=== PATIENT | male | born 1975 | race Caucasian/White ===

== ENCOUNTER 2017-07-15 13:38 | Emergency (ER) | payer MEDICARE, OTHER ==
[~2017-07-15] VITALS: Ht 172.7 cm; Wt 80.0 kg
[2017-07-15 14:02] VITALS: BP 128/66; PULSE 123; RESP 18; TEMP 99.8; O2SAT 97
[2017-07-15] MEDS ORDERED: BUPR150XL PO (14:13)
[2017-07-15] MEDS ORDERED: PERC5TAB12 PO (14:13)
[2017-07-15] MEDS ORDERED: VENTAER INH (14:14)
[2017-07-15] MEDS ORDERED: PROT40TA PO (14:14)
[2017-07-15 14:38] LABS: AUTOMATED NEUTROPHIL # 10.2 TH/MM3 (1.8-7.7); BASOPHIL # 0.1 TH/MM3 (0-0.2); BASOPHIL % 0.5 % (0.0-2.0); EOSINOPHIL # 0.2 TH/MM3 (0-0.4); EOSINOPHIL % 1.3 % (0.0-4.0); HEMATOCRIT 31.6 % (39.0-51.0); HEMOGLOBIN 10.8 GM/DL (13.0-17.0); LYMPH % 9.4 % (9.0-44.0); LYMPHOCYTE # 1.1 TH/MM3 (1.0-4.8); MEAN CELL VOLUME 92.5 FL (80.0-100.0); MEAN CORPUSCULAR HEMOGLOBIN 31.6 PG (27.0-34.0); MEAN CORPUSCULAR HGB CONC 34.1 % (32.0-36.0); MEAN PLATELET VOLUME 6.2 FL (7.0-11.0); MONO % 3.1 % (0.0-8.0); MONOCYTE # 0.4 TH/MM3 (0-0.9); NEUT % 85.7 % (16.0-70.0); PLATELET COUNT 377 TH/MM3 (150-450); RED BLOOD COUNT 3.42 MIL/MM3 (4.50-5.90); RED CELL DISTRIBUTION WIDTH 16.4 % (11.6-17.2); WHITE BLOOD COUNT 11.8 TH/MM3 (4.0-11.0)
[2017-07-15 14:58] LABS: ALBUMIN 2.9 GM/DL (3.4-5.0); ALT (GPT) 90 U/L (12-78); AST (GOT) 65 U/L (15-37); BICARBONATE 31.1 MEQ/L (21.0-32.0); BLOOD UREA NITROGEN 12 MG/DL (7-18); CALCIUM 7.8 MG/DL (8.5-10.1); CHLORIDE 105 MEQ/L (98-107); CREATININE 1.09 MG/DL (0.60-1.30); GLOMERULAR FILTRATION RATE 74 ML/MIN (>89); GLUCOSE,RANDOM 84 MG/DL (74-106); SODIUM (NA) 139 MEQ/L (136-145)
[2017-07-15 14:59] LABS: ACETAMINOPHEN LESS THAN 2.0 MCG/ML (10.0-30.0); ALKALINE PHOSPHATASE 57 U/L (45-117); TOTAL BILIRUBIN ADULT 0.1 MG/DL (0.2-1.0); TOTAL PROTEIN 7.6 GM/DL (6.4-8.2)
--- NOTE | 2017-07-15 15:10 | PD ---
HPI Chief Complaint: Psychiatric Symptoms Time Seen by Provider: 14:02 Travel History International Travel<30 days: No Contact w/Intl Traveler<30days: No Traveled to known affect area: No History of Present Illness HPI 41-year-old male presents to the emergency department under Carrizales act. According to law enforcement report the patient is "abusing prescribed medication. Advised he wanted to kill himself last night and took all of his medication. [facility] him due to him making suicidal statements. Approximately 2 weeks ago. Mann made another statement this morning about killing himself. Mann is clinically diagnosed as psychotic disorder. Mann has slurred speech and found it difficult to stand on his own." On examination of the patient he admits to taking his Lortab that are prescribed to him. He did not take them in an attempt to kill himself. He says he has been taking 3-4 pills at a time for his chronic back pain and history of colitis. He denies suicidal or homicidal ideations. Denies history of suicidal attempt. Denies denies suicidal plan. Denies auditory or visual hallucinations. Denies EtOH. Denies illicit drug use. No known aggravating or relieving factors. Onset unknown. Duration unknown. Symptoms are moderate to severe in severity. Has no emergent medical complaints. Allergies to aspirin. Primary care provider is in [place]. No other modifying factors or associated signs and symptoms. PFSH Past Medical History Asthma: Yes Medical other: Yes (COLITIIS ) Past Surgical History Other Surgery: Yes (COLON, ILLOSTOMY BAG ) Social History Alcohol Use: No Tobacco Use: No Substance Use: No (DENIES AND DRUG USE BUT ABUSES HIS LORTAB ) Allergies-Medications (Allergen,Severity, Reaction): Coded Allergies: aspirin (Verified Allergy, Severe, Bleeding, 07/15/17) Reported Meds & Prescriptions Reported Meds & Active Scripts Active Reported Ventolin Hfa 18 GM Inh (Albuterol Sulfate) 90 Mcg/Act Aer 1 Puff INH Q4H PRN Protonix (Pantoprazole Sodium) 40 Mg Tab 40 Mg PO DAILY Percocet (Oxycodone-Acetaminophen) 5-325 mg Tab 1 Tab PO Q4H PRN Wellbutrin Xl 24 HR (Bupropion HCl) 150 Mg Tab 150 Mg PO DAILY Review of Systems Except as stated in HPI: all other systems reviewed are Neg Physical Exam Narrative GENERAL: Well-nourished, well-developed male patient, in no acute distress; appears intoxicated SKIN: Warm and dry. HEAD: Atraumatic. Normocephalic. EYES: Pupils equal and round. ENT: Mucosa pink and moist. NECK: Supple. Trachea midline. CARDIOVASCULAR: Regular rate and rhythm. No murmur appreciated. RESPIRATORY: No accessory muscle use. Clear to auscultation. Breath sounds equal bilaterally. GASTROINTESTINAL: Colostomy to LLQ draining brown stool; midline abdominal scar noted. Abdomen soft, non-tender, nondistended. Hepatic and splenic margins not palpable. Bowel sounds are active 4 quadrants. MUSCULOSKELETAL: No obvious deformities. No clubbing. No cyanosis. No edema. NEUROLOGICAL: Awake and alert. Oriented 3. No obvious cranial nerve deficits. Motor grossly within normal limits. Slurred speech. Moves all extremities. 5/5 strength to all extremities. PSYCHIATRIC: No delusional thought processes. No hallucinations. Data Data Last Documented VS Vital Signs Date Time Temp Pulse Resp B/P (MAP) Pulse Ox O2 Delivery O2 Flow Rate FiO2 07/15/17 14:06 118 18 07/15/17 14:02 99.8 128/66 (86) 97 Orders Orders Complete Blood Count With Diff (07/15/17 14:02) Comprehensive Metabolic Panel (07/15/17 14:02) Psych Screen (07/15/17 14:02) Drug Screen, Random Urine (07/15/17 14:02) Alcohol (Ethanol) (07/15/17 14:02) Salicylates (Aspirin) (07/15/17 14:02) Tylenol (Acetaminophen) (07/15/17 14:02) Labs Laboratory Tests Test 07/15/17 14:20 07/15/17 14:39 White Blood Count 11.8 TH/MM3 Red Blood Count 3.42 MIL/MM3 Hemoglobin 10.8 GM/DL Hematocrit 31.6 % Mean Corpuscular Volume 92.5 FL Mean Corpuscular Hemoglobin 31.6 PG Mean Corpuscular Hemoglobin Concent 34.1 % Red Cell Distribution Width 16.4 % Platelet Count 377 TH/MM3 Mean Platelet Volume 6.2 FL Neutrophils (%) (Auto) 85.7 % Lymphocytes (%) (Auto) 9.4 % Monocytes (%) (Auto) 3.1 % Eosinophils (%) (Auto) 1.3 % Basophils (%) (Auto) 0.5 % Neutrophils # (Auto) 10.2 TH/MM3 Lymphocytes # (Auto) 1.1 TH/MM3 Monocytes # (Auto) 0.4 TH/MM3 Eosinophils # (Auto) 0.2 TH/MM3 Basophils # (Auto) 0.1 TH/MM3 CBC Comment DIFF FINAL Differential Comment Salicylates Level LESS THAN 1.7 MG/DL MDM Medical Decision Making Medical Screen Exam Complete: Yes Emergency Medical Condition: Yes Medical Record Reviewed: Yes Differential Diagnosis Drug intoxication, suicidal ideation, medical clearance for psychiatric admission Narrative Course Patient presents under a Carrizales act. Physical examination and vital signs are essentially unremarkable. Patient has no medical complaints to report. Psych screen has been ordered. If the laboratory results are unremarkable, the patient will be medically cleared for psychiatric evaluation and disposition. Diagnosis Primary Impression: Medical clearance for psychiatric admission Condition: Stable Katy Anderson Jul 15, 2017 15:10
[2017-07-15 20:00] VITALS: BP 111/64; PULSE 102; RESP 16; O2SAT 98
[2017-07-16 03:00] VITALS: BP 125/62; PULSE 100; RESP 16; O2SAT 96
[2017-07-16] MEDS ORDERED: ACETAMINOPHEN 325 MG TAB PO ONE (04:00)
[2017-07-16 10:00] VITALS: BP 118/67; PULSE 80; RESP 17; TEMP 97.6; O2SAT 96
--- NOTE | 2017-07-16 11:42 | PD ---
History of Present Illness Chief Complaint: Psychiatric Symptoms Time Seen by Provider: 11:20 Travel History International Travel<30 Days: No Contact w/Intl Traveler<30days: No Known affected area: No Legal Status Legal Status: Carrizales Act Car[place]ales Act Signed By: Cesario PERKINS History of Present Illness: History of Present Illness HPI 41-year-old single male with no previous psychiatric history who presents to the emergency department under Carrizales act initiated by law enforcement. According to law enforcement report the patient is "abusing prescribed medication. Advised he wanted to kill himself last night and took all of his medication. The report also alleges that he made suicidal statements to weeks ago. Mnan made another statement this morning about killing himself." The patient was monitored in main ED and he presented no suicidality and no behavioral dysregulation. EMR reviewed. No previous contact with [facility] psychiatry. Current toxicology is positive for benzos and opiates which are prescribed. Patient is seen. Raciel, case fitter present during interview. Patient is alert, oriented, dressed in hospital gown with fair hygiene. Patient speech is logical, clear, goal-directed. He appears to be of lower intellectual functioning. There is no evidence of any psychosis, no jeremy, no hypomania. No subjective clinical evidence of depression. He is mildly anxious about being here in the hospital. He denies any suicidal or homicidal ideation, intent or plan. He states " I took pain pills due to increasing pain in to see if it would help me. No ma'am I do not want to hurt myself and I was not trying to hurt myself." He reports he has persistent pain secondary to back problems as well as to pain with his ostomy. PFS Past Medical History Asthma: Yes Medical other: Yes (COLITIIS ) Past Surgical History Other Surgery: Yes (COLON, ILLOSTOMY BAG ) Psychiatric History Psychiatric History Hx Psychiatric Treatment: Patient denies. He has received medication for exciting from general medical providers. History of Inpatient Treatment: No Guns or firearms in home: No Social History Single, never . Patient on disability. Lives in his mother's home. Hx Alcohol Use: No Hx Tobacco Use: No Hx Substance Use: No Hx of Substance Use Treatment: No Allergies-Medications (Allergen,Severity, Reaction): Coded Allergies: aspirin (Verified Allergy, Severe, Bleeding, 07/15/17) Reported Meds & Prescriptions Reported Meds & Active Scripts Active Reported Ventolin Hfa 18 GM Inh (Albuterol Sulfate) 90 Mcg/Act Aer 1 Puff INH Q4H PRN Protonix (Pantoprazole Sodium) 40 Mg Tab 40 Mg PO DAILY Percocet (Oxycodone-Acetaminophen) 5-325 mg Tab 1 Tab PO Q4H PRN Wellbutrin Xl 24 HR (Bupropion HCl) 150 Mg Tab 150 Mg PO DAILY Review of Systems Musculoskeletal: COMPLAINS OF: Joint pain, Back pain Psychiatric: DENIES: Anxiety, Confusion, Mood changes, Depression, Hallucinations, Agitation, Suicidal Ideation, Homicidal Ideation, Delusions Except as stated in HPI: all other systems reviewed are Neg Mental Status Examination Appearance: Appropriate Consciousness: Alert Orientation: x4 Speech: Unremarkable Language: Adequate Fund of Knowledge: Adequate Attention and Concentration: Adequate Memory: Unremarkable Mood: Appropriate Affect: Appropriate Thought Process & Associations: Intact, Logical, Goal directed Thought Content: Appropriate Hallucination Type: None Delusion Type: None Suicidal Ideation: No Suicidal Plan: No Suicidal Intention: No Homicidal Ideation: No Homicidal Plan: No Homicidal Intention: No Insight: Adequate Judgment: Adequate MDM Medical Decision Making Medical Record Reviewed: Yes Assessment/Plan 41-year-old single male with no previous psychiatric history who presents to the emergency department under Carrizales act initiated by law enforcement. According to law enforcement report the patient is "abusing prescribed medication. Advised he wanted to kill himself last night and took all of his medication. The report also alleges that he made suicidal statements to weeks ago. Mann made another statement this morning about killing himself." The patient was monitored in main ED and he presented no suicidality and no behavioral dysregulation. Patient after extended observation presented no behavioral dysregulation and no suicidality. Patient does not present any evidence of unstable mental illness as described under the Carrizales act. There is no psychosis and no jeremy. Denies suicidal or homicidal ideation, intent or plan. At this time the patient does not meet criteria to remain under the Carrizales act. Lift BA. No evidence of unstable mental illness. Psychiatrically clear for discharge from ED. Orders Orders Complete Blood Count With Diff (2/20/18 14:02) Comprehensive Metabolic Panel (07/15/17 14:02) Psych Screen (07/15/17 14:02) Drug Screen, Random Urine (07/15/17 14:02) Alcohol (Ethanol) (07/15/17 14:02) Salicylates (Aspirin) (07/15/17 14:02) Tylenol (Acetaminophen) (07/15/17 14:02) Acetaminophen (Tylenol) (07/16/17 04:00) Diet Regular Basic (07/16/17 Breakfast) Diet Regular Basic (07/16/17 Lunch) Results Vital Signs Date Time Temp Pulse Resp B/P (MAP) Pulse Ox O2 Delivery O2 Flow Rate FiO2 07/16/17 10:00 97.6 80 17 118/67 (84) 96 Room Air 07/16/17 03:00 100 16 125/62 (83) 96 Room Air 07/15/17 20:00 102 16 111/64 (80) 98 Room Air 07/15/17 14:06 118 18 07/15/17 14:02 99.8 123 18 128/66 (86) 97 Laboratory Tests Test 07/15/17 14:20 07/15/17 14:39 White Blood Count 11.8 Red Blood Count 3.42 Hemoglobin 10.8 Hematocrit 31.6 Mean Corpuscular Volume 92.5 Mean Corpuscular Hemoglobin 31.6 Mean Corpuscular Hemoglobin Concent 34.1 Red Cell Distribution Width 16.4 Platelet Count 377 Mean Platelet Volume 6.2 Neutrophils (%) (Auto) 85.7 Lymphocytes (%) (Auto) 9.4 Monocytes (%) (Auto) 3.1 Eosinophils (%) (Auto) 1.3 Basophils (%) (Auto) 0.5 Neutrophils # (Auto) 10.2 Lymphocytes # (Auto) 1.1 Monocytes # (Auto) 0.4 Eosinophils # (Auto) 0.2 Basophils # (Auto) 0.1 CBC Comment DIFF FINAL Differential Comment Blood Urea Nitrogen 12 Creatinine 1.09 Random Glucose 84 Total Protein 7.6 Albumin 2.9 Calcium Level 7.8 Alkaline Phosphatase 57 Aspartate Amino Transf (AST/SGOT) 65 Alanine Aminotransferase (ALT/SGPT) 90 Total Bilirubin 0.1 Sodium Level 139 Potassium Level 3.5 Chloride Level 105 Carbon Dioxide Level 31.1 Anion Gap 3 Estimat Glomerular Filtration Rate 74 Salicylates Level LESS THAN 1.7 Acetaminophen Level LESS THAN 2.0 Ethyl Alcohol Level LESS THAN 3 Urine Opiates Screen POS Urine Barbiturates Screen NEG Urine Amphetamines Screen NEG Urine Benzodiazepines Screen POS Urine Cocaine Screen NEG Urine Cannabinoids Screen NEG Diagnosis Primary Impression: Medical clearance for psychiatric admission Additional Impression: Adjustment disorder Psychiatrically Cleared: Yes Med/ Other Pt Specific Info: No Change to Meds Disposition: 01 DISCHARGE HOME Condition: Stable Problem Qualifiers Additional Impression: Adjustment disorder Qualified Codes: F43.22 - Adjustment disorder with anxiety Jaylin Martinez [employer]AL [employer] Jul 16, 2017 11:42
== END 2017-07-16 14:51 | disposition home or self-care (01) ==
LOC: NEPD 13:38
DX: F43.22 Adjustment disorder with anxiety (principal); J45.909 Unspecified asthma, uncomplicated; Z79.899 Other long term (current) drug therapy
CPT/HCPCS: 80053; 80307; 85025; 99283

== ENCOUNTER 2017-07-30 18:32 | Observation (INO) | payer MEDICARE, MEDICAID ==
[~2017-07-30] VITALS: Ht 172.7 cm; Wt 68.2 kg
[~2017-07-30 18:32] MED LIST: BUPR150XL PO; PERC5TAB12 PO; PROT40TA PO; VENTAER INH
[2017-07-30 19:14] VITALS: BP 143/99; PULSE 103; RESP 20; TEMP 98.7; O2SAT 96
--- NOTE | 2017-07-31 01:26 | PD ---
HPI Chief Complaint: Psychiatric Symptoms Time Seen by Provider: 01:17 Travel History International Travel<30 days: No Contact w/Intl Traveler<30days: No Traveled to known affect area: No History of Present Illness HPI 41-year-old male presents under an exparte for psychiatric evaluation. In fact he was transferred here from [facility] because he was outside the scope of care because he has a colostomy. Patient has a history of ulcerative colitis status post colectomy in 1999. He has an ileostomy in place. According to his paperwork the patient is paranoid, psychotic, not taking his medication. The patient reports that for the past few weeks she has been having rectal pain for the past few days he has been having pain around his stoma and his stoma has been leaking. Pain is an aching pain which is constant. He denies any fevers or chills. He denies any nausea or vomiting. He has no other complaints at this time. PFSH Past Medical History Asthma: Yes Tetanus Vaccination: Unknown Influenza Vaccination: No Past Surgical History Other Surgery: Yes (COLON, ILLOSTOMY BAG ) Social History Alcohol Use: Yes Tobacco Use: No Substance Use: Yes (marijuana) Allergies-Medications (Allergen,Severity, Reaction): Coded Allergies: aspirin (Verified Allergy, Severe, Bleeding, 07/15/17) Reported Meds & Prescriptions Reported Meds & Active Scripts Active Reported Wellbutrin Xl 24 HR (Bupropion HCl) 150 Mg Tab 150 Mg PO DAILY Oxycodone-Acetaminophen 5-325 mg Tab 1 Tab PO Q4H PRN Remeron (Mirtazapine) 15 Mg Tab 15 Mg PO HS Zyprexa (Olanzapine) 10 Mg Tab 10 Mg PO HS Lexapro (Escitalopram Oxalate) 10 Mg Tab 10 Mg PO DAILY Review of Systems Except as stated in HPI: all other systems reviewed are Neg Physical Exam Narrative GENERAL: Well-developed well-nourished male in no acute distress SKIN: Warm and dry. HEAD: Atraumatic. Normocephalic. EYES: Pupils equal and round. No scleral icterus. No injection or drainage. ENT: No nasal bleeding or discharge. Mucous membranes pink and moist. NECK: Trachea midline. No JVD. CARDIOVASCULAR: Regular rate and rhythm. No murmur appreciated. RESPIRATORY: No accessory muscle use. Clear to auscultation. Breath sounds equal bilaterally. GASTROINTESTINAL: Abdomen soft, generalized mild tenderness, nondistended. Hepatic and splenic margins not palpable. Ileostomy in place. Surgical scars noted. MUSCULOSKELETAL: No obvious deformities. No clubbing. No cyanosis. No edema. NEUROLOGICAL: Awake and alert. No obvious cranial nerve deficits. Motor grossly within normal limits. Normal speech. PSYCHIATRIC: Flat affect, insight and judgment appear limited. Data Data Last Documented VS Vital Signs Date Time Temp Pulse Resp B/P (MAP) Pulse Ox O2 Delivery O2 Flow Rate FiO2 07/30/17 19:14 98.7 103 20 143/99 (114) 96 Orders Orders Psych Screen (07/30/17 21:19) Complete Blood Count With Diff (07/31/17 01:18) Comprehensive Metabolic Panel (07/31/17 01:18) Lipase (07/31/17 01:18) Thyroid Stimulating Hormone (07/31/17 01:18) Drug Screen, Random Urine (07/31/17 01:18) Alcohol (Ethanol) (07/31/17 01:18) Ct Abd/Pel W Iv Contrast(Rout) (07/31/17 02:18) Iohexol 350 Inj (Omnipaque 350 Inj) (07/31/17 02:30) Piperacil-Tazo 3.375 Gm Premix (Zosyn 3. (07/31/17 03:30) Admit Order (Ed Use Only) (07/31/17 03:42) Labs Laboratory Tests Test 07/31/17 01:30 White Blood Count 13.3 TH/MM3 Red Blood Count 4.96 MIL/MM3 Hemoglobin 16.4 GM/DL Hematocrit 45.6 % Mean Corpuscular Volume 92.0 FL Mean Corpuscular Hemoglobin 33.2 PG Mean Corpuscular Hemoglobin Concent 36.1 % Red Cell Distribution Width 15.4 % Platelet Count 492 TH/MM3 Mean Platelet Volume 7.1 FL Neutrophils (%) (Auto) 77.3 % Lymphocytes (%) (Auto) 13.0 % Monocytes (%) (Auto) 9.0 % Eosinophils (%) (Auto) 0.3 % Basophils (%) (Auto) 0.4 % Neutrophils # (Auto) 10.3 TH/MM3 Lymphocytes # (Auto) 1.7 TH/MM3 Monocytes # (Auto) 1.2 TH/MM3 Eosinophils # (Auto) 0.0 TH/MM3 Basophils # (Auto) 0.1 TH/MM3 CBC Comment AUTO DIFF Differential Comment AUTO DIFF CONFIRMED Blood Urea Nitrogen 30 MG/DL Creatinine 1.44 MG/DL Random Glucose 100 MG/DL Total Protein 10.7 GM/DL Albumin 4.1 GM/DL Calcium Level 9.5 MG/DL Alkaline Phosphatase 91 U/L Aspartate Amino Transf (AST/SGOT) 115 U/L Alanine Aminotransferase (ALT/SGPT) 162 U/L Total Bilirubin 0.8 MG/DL Sodium Level 137 MEQ/L Potassium Level 5.1 MEQ/L Chloride Level 99 MEQ/L Carbon Dioxide Level 28.2 MEQ/L Anion Gap 10 MEQ/L Estimat Glomerular Filtration Rate 54 ML/MIN Lipase 153 U/L Thyroid Stimulating Hormone 3rd Gen 0.276 uIU/ML Ethyl Alcohol Level LESS THAN 3 MG/DL MDM Medical Decision Making Medical Screen Exam Complete: Yes Emergency Medical Condition: Yes Medical Record Reviewed: Yes Differential Diagnosis Schizophrenia, acute psychosis, major depressive disorder, substance-induced mood disorder Narrative Course CT of the abdomen and pelvis was obtained revealing: CONCLUSION: 1. There is a 3.8 cm rim-enhancing low-density collection in the region of the rectum and anus. This could represent chronic postsurgical change or an infected fluid collection. Suggest correlating with the patient's prior CT examinations or correlate for any pelvic pain or signs of infection. 2. Otherwise, no other acute finding is identified. There are no comparisons available for review. The patient reports that he lives in [place]. He does have leukocytosis with WBC count of 13.3 and has been complaining of rectal pain. Discussed with my attending who agrees with plan of care. The patient will be given Zosyn. The plan will be to admit the patient to the hospitalist team with psychiatry and colorectal surgery consultations. Diagnosis Primary Impression: Psychosis Additional Impressions: Rectal pain Leukocytosis Admitting Information Admitting Physician Requests: Rafita Staples Jul 31, 2017 01:26
[2017-07-31 01:43] LABS: AUTOMATED NEUTROPHIL # 10.3 TH/MM3 (1.8-7.7); BASOPHIL # 0.1 TH/MM3 (0-0.2); BASOPHIL % 0.4 % (0.0-2.0); EOSINOPHIL % 0.3 % (0.0-4.0); HEMATOCRIT 45.6 % (39.0-51.0); HEMOGLOBIN 16.4 GM/DL (13.0-17.0); LYMPHOCYTE # 1.7 TH/MM3 (1.0-4.8); MEAN CORPUSCULAR HEMOGLOBIN 33.2 PG (27.0-34.0); MEAN PLATELET VOLUME 7.1 FL (7.0-11.0); MONOCYTE # 1.2 TH/MM3 (0-0.9); NEUT % 77.3 % (16.0-70.0); PLATELET COUNT 492 TH/MM3 (150-450); RED BLOOD COUNT 4.96 MIL/MM3 (4.50-5.90); RED CELL DISTRIBUTION WIDTH 15.4 % (11.6-17.2); WHITE BLOOD COUNT 13.3 TH/MM3 (4.0-11.0)
[2017-07-31 01:51] LABS: MEAN CORPUSCULAR HGB CONC 36.1 % (32.0-36.0)
[2017-07-31 02:07] LABS: ALKALINE PHOSPHATASE 91 U/L (45-117); TOTAL BILIRUBIN ADULT 0.8 MG/DL (0.2-1.0); TOTAL PROTEIN 10.7 GM/DL (6.4-8.2)
[2017-07-31 02:14] LABS: ALBUMIN 4.1 GM/DL (3.4-5.0); ALT (GPT) 162 U/L (12-78); AST (GOT) 115 U/L (15-37); BICARBONATE 28.2 MEQ/L (21.0-32.0); BLOOD UREA NITROGEN 30 MG/DL (7-18); CALCIUM 9.5 MG/DL (8.5-10.1); CHLORIDE 99 MEQ/L (98-107); CREATININE 1.44 MG/DL (0.60-1.30); GLOMERULAR FILTRATION RATE 54 ML/MIN (>89); GLUCOSE,RANDOM 100 MG/DL (74-106); SODIUM (NA) 137 MEQ/L (136-145)
[2017-07-31] MEDS ORDERED: IOHEXOL 350 MG/ML 10 ML VIAL (for RAD DIAG) IVCONTRAST ONE (02:30)
--- NOTE | 2017-07-31 02:54 | RADRPT ---
EXAM DATE/TIME: 07/31/2017 02:28 [facility] COMPARISON: No previous studies available for comparison. INDICATIONS : Abdomen pain. IV CONTRAST: 100 cc Omnipaque 350 (iohexol) IV ORAL CONTRAST: No oral contrast ingested. RADIATION DOSE: 6.64 CTDIvol (mGy) MEDICAL HISTORY : SURGICAL HISTORY : colon, ileostomy ENCOUNTER: Initial ACUITY: 1 day PAIN SCALE: 4/10 LOCATION: Bilateral abdomen TECHNIQUE: Volumetric scanning of the abdomen and pelvis was performed. Using automated exposure control and ad justment of the mA and/or kV according to patient size, radiation dose was kept as low as reasonably achievable to obtain optimal diagnostic quality images. DICOM format image data is available electro nically for review and comparison. FINDINGS: LOWER LUNGS: The visualized lower lungs are clear. LIVER: Homogeneous density without lesion. There is no dilation of the biliary tree. No calcified gallston es. SPLEEN: Normal size without lesion. PANCREAS: Within normal limits. KIDNEYS: Normal in size and shape. There is no mass, stone or hydronephrosis. There is an incidental 7 mm low density lesion at the lower pole of the right kidney that is too small to characterize. ADRENAL GLANDS: Within normal limits. VASCULAR: There is no aortic aneurysm. BOWEL/MESENTERY: Stomach and small bowel demonstrate no acute finding. There is a left lower quadrant loop ostomy. The re has been prior colectomy. In the region of the rectum and anus there is a rim-enhancing low densit y collection measuring proximately 3.8 x 2.0 cm. There is induration of the surrounding fat. No free air or free fluid is present. ABDOMINAL WALL: There postsurgical changes on the midline anterior abdominal wall with a scaphoid abdomen. RETROPERITONEUM: There is no lymphadenopathy. BLADDER: No wall thickening or mass. REPRODUCTIVE: No acute abnormality. INGUINAL: There is no lymphadenopathy or hernia. MUSCULOSKELETAL: There are mild degenerative changes of the lumbar spine. CONCLUSION: 1. There is a 3.8 cm rim-enhancing low-density collection in the region of the rectum and anus. This could represent chronic postsurgical change or an infected fluid collection. Suggest correlating with the patient's prior CT examinations or correlate for any pelvic pain or signs of infection. 2. Otherwise, no other acute finding is identified. Bronson [place] MD on July 31, 2017 at 2:47 Board Certified Radiologist. This report was verified electronically.
[2017-07-31] MEDS ORDERED: PIPERACIL-TAZO 3.375 GM PREMIX 50 ML IV ONE (03:30)
[2017-07-31] MEDS ORDERED: REME15TA PO (03:49)
[2017-07-31] MEDS ORDERED: ZYPR10TA PO (03:49)
[2017-07-31] MEDS ORDERED: LEXA10TA PO (03:49)
[2017-07-31] MEDS ORDERED: OLANZapine 10 MG TAB PO ONE (04:00)
[2017-07-31] MEDS ORDERED: MIRTAZAPINE 15 MG TAB PO ONE (04:00)
[2017-07-31 04:04] VITALS: BP 112/57; PULSE 78; RESP 16; O2SAT 97
[2017-07-31] MEDS ORDERED: OXYC1TAB63 PO (04:06)
[2017-07-31] MEDS ORDERED: BUPR150XL PO (04:08)
[2017-07-31] MEDS: SODIUM CHLOR 0.9% 1000 ML INJ 1,000 ML IV SCH ×3 (04:36→22:35)
[2017-07-31] MEDS ORDERED: ACETAMINOPHEN 325 MG TAB PO PRN (04:45)
[2017-07-31] MEDS ORDERED: NALOXONE HCL 0.4 MG/ML AMP IV PUSH PRN ×2 (04:45→12:00)
[2017-07-31] MEDS ORDERED: ONDANSETRON HCL 4 MG/2 ML VIAL IVP PRN (04:45)
[2017-07-31] MEDS ORDERED: SODIUM CHLORIDE 0.9% FLUSH 10 ML FLUSH IV FLUSH PRN (04:45)
--- NOTE | 2017-07-31 05:21 | HHI.HP ---
HPI Service [facility] Primary Care Physician No Primary Care Physician Admission Diagnosis Rectal fluid collection/pain, psychosis, leukocytosis Diagnoses: Travel History International Travel<30 Days: No Contact w/Intl Traveler <30 Da: No Traveled to Known Affected Are: No History of Present Illness 41-year-old male with past medical history significant for ulcerative [facility] for further medical evaluation. The patient is status post colectomy with end ileostomy in 1999. He is currently paranoid, psychotic and not taking his medication. The patient reports that he has had significant low back, buttock pain for the past several days. He states his ostomy is having increased output that is more liquid than usual. Patient denies any fevers or chills. Request medication for pain and anxiety. No chest pain or shortness of breath. No nausea/vomiting. Review of Systems Except as stated in HPI: all other systems reviewed are Neg Past Family Social History Past Medical History Ulcerative colitis Unspecified psychiatric disorder Past Surgical History Colectomy with end ileostomy in 1999 Reported Medications Reported Meds & Active Scripts Active Reported Wellbutrin Xl 24 HR (Bupropion HCl) 150 Mg Tab 150 Mg PO DAILY Oxycodone-Acetaminophen 5-325 mg Tab 1 Tab PO Q4H PRN Remeron (Mirtazapine) 15 Mg Tab 15 Mg PO HS Zyprexa (Olanzapine) 10 Mg Tab 10 Mg PO HS Lexapro (Escitalopram Oxalate) 10 Mg Tab 10 Mg PO DAILY Allergies: Coded Allergies: aspirin (Verified Allergy, Severe, Bleeding, 07/15/17) Family History Negative for CAD/DM Social History Endorses rare alcohol use. Denies tobacco, illicit drugs Physical Exam Vital Signs Vital Signs Date Time Temp Pulse Resp B/P (MAP) Pulse Ox O2 Delivery O2 Flow Rate FiO2 07/31/17 04:04 78 16 112/57 (75) 97 Room Air 07/30/17 19:14 98.7 103 20 143/99 (114) 96 Physical Exam GENERAL: male lying in bed SKIN: No rashes, ecchymoses or lesions. Cool and dry. HEAD: Atraumatic. Normocephalic. No temporal or scalp tenderness. EYES: Pupils equal round and reactive. Extraocular motions intact. No scleral icterus. No injection or drainage. ENT: Nose without bleeding, purulent drainage or septal hematoma. Throat without erythema, tonsillar hypertrophy or exudate. Uvula midline. Airway patent. NECK: Trachea midline. No JVD or lymphadenopathy. Supple, nontender, no meningeal signs. CARDIOVASCULAR: Regular rate and rhythm without murmurs, gallops, or rubs. RESPIRATORY: Clear to auscultation. Breath sounds equal bilaterally. No wheezes , rales, or rhonchi. GASTROINTESTINAL: Abdomen soft, non-tender, nondistended. No hepato-splenomegaly , or palpable masses. No guarding. MUSCULOSKELETAL: Extremities without clubbing, cyanosis, or edema. No joint tenderness, effusion, or edema noted. No calf tenderness. NEUROLOGICAL: Awake and alert. Cranial nerves II through XII intact. Motor and sensory grossly within normal limits. Normal speech. Laboratory Laboratory Tests Test 07/31/17 01:30 White Blood Count 13.3 Red Blood Count 4.96 Hemoglobin 16.4 Hematocrit 45.6 Mean Corpuscular Volume 92.0 Mean Corpuscular Hemoglobin 33.2 Mean Corpuscular Hemoglobin Concent 36.1 Red Cell Distribution Width 15.4 Platelet Count 492 Mean Platelet Volume 7.1 Neutrophils (%) (Auto) 77.3 Lymphocytes (%) (Auto) 13.0 Monocytes (%) (Auto) 9.0 Eosinophils (%) (Auto) 0.3 Basophils (%) (Auto) 0.4 Neutrophils # (Auto) 10.3 Lymphocytes # (Auto) 1.7 Monocytes # (Auto) 1.2 Eosinophils # (Auto) 0.0 Basophils # (Auto) 0.1 CBC Comment AUTO DIFF Differential Comment AUTO DIFF CONFIRMED Blood Urea Nitrogen 30 Creatinine 1.44 Random Glucose 100 Total Protein 10.7 Albumin 4.1 Calcium Level 9.5 Alkaline Phosphatase 91 Aspartate Amino Transf (AST/SGOT) 115 Alanine Aminotransferase (ALT/SGPT) 162 Total Bilirubin 0.8 Sodium Level 137 Potassium Level 5.1 Chloride Level 99 Carbon Dioxide Level 28.2 Anion Gap 10 Estimat Glomerular Filtration Rate 54 Lipase 153 Thyroid Stimulating Hormone 3rd Gen 0.276 Ethyl Alcohol Level LESS THAN 3 Result Diagram: 312907/31/17 0130 Caprini VTE Risk Assessment Caprini VTE Risk Assessment: No/Low Risk (score <= 1) Caprini Risk Assessment Model Point Value = 1 Point Value = 2 Point Value = 3 Point Value = 5 Age 41-60 Minor surgery BMI > 25 kg/m2 Swollen legs Varicose veins or History of unexplained or recurrent spontaneous Oral contraceptives or hormone replacement Sepsis (< 1 month) Serious lung disease, including pneumonia (< 1 month) Abnormal pulmonary function Acute myocardial infarction Congestive heart failure (< 1 month) History of inflammatory bowel disease Medical patient at bed rest Age 61-74 Arthroscopic surgery Major open surgery (> 45 min) Laparoscopic surgery (> 45 min) Malignancy Confined to bed (> 72 hours) Immobilizing plaster cast Central venous access Age >= 75 History of VTE Family history of VTE Factor V Leiden Prothrombin [id number] Lupus anticoagulant Anticardiolipin antibodies Elevated serum homocysteine Heparin-induced thrombocytopenia Other congenital or acquired thrombophilia Stroke (< 1 month) Elective arthroplasty Hip, pelvis, or leg fracture Acute spinal cord injury (< 1 month) Prophylaxis Regimen Total Risk Factor Score Risk Level Prophylaxis Regimen 0-1 Low Early ambulation 2 Moderate Order ONE of the following: *Sequential Compression Device (SCD) *Heparin 5000 units SQ BID 3-4 Higher Order ONE of the following medications: *Heparin 5000 units SQ TID *Enoxaparin/Lovenox 40 mg SQ daily (WT < 150 kg, CrCl > 30 mL/min) *Enoxaparin/Lovenox 30 mg SQ daily (WT < 150 kg, CrCl > 10-29 mL/min) *Enoxaparin/Lovenox 30 mg SQ BID (WT < 150 kg, CrCl > 30 mL/min) AND/OR *Sequential Compression Device (SCD) 5 or more Highest Order ONE of the following medications: *Heparin 5000 units SQ TID (Preferred with Epidurals) *Enoxaparin/Lovenox 40 mg SQ daily (WT < 150 kg, CrCl > 30 mL/min) *Enoxaparin/Lovenox 30 mg SQ daily (WT < 150 kg, CrCl > 10-29 mL/min) *Enoxaparin/Lovenox 30 mg SQ BID (WT < 150 kg, CrCl > 30 mL/min) AND *Sequential Compression Device (SCD) Assessment and Plan Assessment and Plan Assessment/plan: 1. Rectal abscess CT of the abdomen/pelvis significant for a 3.8 cm rim enhancing low-density collection in the region of the rectum and anus that could represent postsurgical change versus infected fluid collection Rectal exam was attempted in the emergency department however was severely limited secondary to patient's pain Unclear if infectious however patient with mild leukocytosis Zosyn Consult colorectal surgery, appreciate recommendations 2. Psychiatric disorder Psychiatry consulted, appreciate recommendations Continue home medications: Remeron, Zyprexa 3. BRITTANIE Cr 1.44, baseline 1.0 IVF hydration Monitor renal function 4. Transaminitis Patient with history of elevated LFTs Continue to monitor FEN NPO Electrolytes: monitor and replete prn Ambulation Rosalba Vo MD Jul 31, 2017 05:21
[2017-07-31 07:00] VITALS: BP 118/62; PULSE 74; RESP 15; TEMP 98; O2SAT 97
[2017-07-31] MEDS: SODIUM CHLORIDE 0.9% FLUSH 10 ML FLUSH IV FLUSH SCH ×2 (07:38→21:00)
[2017-07-31] MEDS: ESCITALOPRAM OXALATE 10 MG TAB PO SCH ×2 (09:00→10:55)
[2017-07-31] MEDS: buPROPion HCL 150 MG SUSTAINED RELEASE TAB PO SCH (10:55)
[2017-07-31] MEDS: PIPERACIL-TAZO 3.375 GM PREMIX 50 ML IV SCH ×3 (10:55→22:34)
[2017-07-31 11:14] VITALS: BP 115/67; PULSE 85; RESP 15; O2SAT 97
[2017-07-31] MEDS ORDERED: MORPHINE SULFATE 4 MG/ML INJ IV PUSH PRN (12:00)
[2017-07-31] MEDS ORDERED: MORPHINE SULFATE 2 MG/ML INJ IV PUSH PRN (12:00)
--- NOTE | 2017-07-31 12:25 | HHI.PR ---
Subjective Remarks Follow up for rectal abscess. The patient complains of rectal pain, requesting pain medication. Denies fevers/chills. No nausea/vomiting. Discussed patient's elevated LFTs. He denies any history of liver disease or hepatitis but admits to taking tylenol a few times a day over the past few weeks. The patient is not a great historian. Vital signs reviewed and stable. Objective Vitals Vital Signs Date Time Temp Pulse Resp B/P (MAP) Pulse Ox O2 Delivery O2 Flow Rate FiO2 07/31/17 11:14 85 15 115/67 (83) 97 Room Air 07/31/17 07:00 98.0 74 15 118/62 (80) 97 Room Air 07/31/17 04:04 78 16 112/57 (75) 97 Room Air 07/30/17 19:14 98.7 103 20 143/99 (114) 96 I/O 07/30/17 07/30/17 07/30/17 07/31/17 07/31/17 07/31/17 07:00 15:00 23:00 07:00 15:00 23:00 Intake Total 100 ml 50 ml Balance 100 ml 50 ml Intake IV Total 100 ml 50 ml Result Diagram: 07/31/17 0130 07/31/17 0130 Imaging Last Impressions Abdomen/Pelvis CT 07/31/17217 Signed Impressions: Service Date/Time: July 02:28 - CONCLUSION: 1. There is a 3.8 cm rim-enhancing low-density collection in the region of the rectum and anus. This could represent chronic postsurgical change or an infected fluid collection. Suggest correlating with the patient's prior CT examinations or correlate for any pelvic pain or signs of infection. 2. Otherwise, no other acute finding is identified. Bronson Colorado MD Objective Remarks GENERAL: Well-nourished, well-developed middle aged male patient in [facility]. SKIN: Warm and dry. No rash. HEENT: Normocephalic. Atraumatic. Pupils equal and round. Mucous membranes pink and moist. CARDIOVASCULAR: Regular rate and rhythm. S1, S2 noted. No murmur appreciated. RESPIRATORY: No accessory muscle use. Clear to auscultation. Breath sounds equal bilaterally. GASTROINTESTINAL: Abdomen soft, non-tender, nondistended. Normoactive bowel sounds x4. Ileostomy at LLQ. Old surgical scarring. MUSCULOSKELETAL: No obvious deformities. Extremities without clubbing, cyanosis , or edema. NEUROLOGICAL: Awake and alert. No obvious cranial nerve deficits. Motor grossly within normal limits. Normal speech. Medications and IVs Current Medications Medications (Trade) Dose Ordered Sig/Denita Route Start Time Stop Time Status Last Admin Sodium Chloride 1,000 ml @ 100 mls/hr Q10H IV 07/31/17 04:36 07/31/17 10:55 (NS Flush) 2 ml UNSCH PRN IV FLUSH 07/31/17 04:45 (NS Flush) 2 ml BID IV FLUSH 07/31/17 09:00 (Tylenol) 650 mg Q4H PRN PO 07/31/17 04:45 (Zofran Inj) 4 mg Q6H PRN IVP 07/31/17 04:45 (Narcan Inj) 0.4 mg UNSCH PRN IV PUSH 07/31/17 04:45 (Wellbutrin Sr) 150 mg DAILY PO 07/31/17 09:00 07/31/17 10:55 (Lexapro) 10 mg DAILY PO 07/31/17 09:00 (Remeron) 15 mg HS PO 07/31/17 21:00 (ZyPREXA) 10 mg HS PO 07/31/17 21:00 Piperacillin Sod/ Tazobactam Sod 50 ml @ 100 mls/hr Q6H IV 07/31/17 10:00 07/31/17 10:55 (Morphine Inj) 2 mg Q3H PRN IV PUSH 07/31/17 12:00 (Morphine Inj) 4 mg Q3H PRN IV PUSH 07/31/17 12:00 A/P Problem List: (1) Rectal abscess ICD Code: K61.1 - Rectal abscess (2) Adjustment disorder with depressed mood ICD Code: F43.21 - Adjustment disorder with depressed mood Assessment and Plan 41-year-old male with past medical history significant for ulcerative colitis s /p colectomy, with ileostomy since 1999, unspecified psychiatric disorder, presents under [facility] from [facility] for further medical evaluation. He is currently paranoid, psychotic and not taking his medication. The patient reports that he has had significant low back, buttock pain for the past several days. Sepsis with Rectal abscess: CT abdomen/pelvis reviewed, significant for a 3.8 cm rim enhancing low-density collection in the region of the rectum and anus that could represent postsurgical change versus infected fluid collection. Rectal exam was attempted in the emergency department however was severely limited secondary to patient's pain. Meets sepsis criteria with +leukocytosis with WBC 13.3, tachycardia HR 103, and source-rectal abscess. -Continue antibiotics with IV Zosyn -Keep NPO for now -Give IVF hydration -Pain control with IV Morphine prn -Consult colorectal surgery, appreciate recommendations Psychiatric disorder: patient from [facility] -Psychiatry consulted, appreciate recommendations -Continue home medications: Remeron, Zyprexa BRITTANIE: Cr 1.44, baseline 1.0. Suspect secondary to dehydration from increased ileostomy output. -Continue IVF hydration -Monitor renal function Transaminitis: Patient with history of elevated LFTs, no hx of hepatitis or cirrhosis. CT abd with normal liver. -Patient admits to taking tylenol a few times a day over the past 2 weeks -Check tylenol level -Monitor LFTs DVT Prophylaxis: teds/SCDs; avoid chemoprophylaxis with possible upcoming procedure Meche Viera PA-C Jul 31, 2017 12:25 pm
--- NOTE | 2017-07-31 13:12 | PD.PSY.CON ---
Provisional Diagnosis Admission Date Jul 31, 2017 at 03:43 [place]. Adjustment disorder with depressed mood History of Present Illness Service Psychiatry Consult Requested By Psychotic behavior Reason for Consult Psychotic behavior Primary Care Physician No Primary Care Physician HPI The patient is a 41-year-old man, patient was seen and cleared yesterday by Ms. Jaylin Martinez in [facility], domicile is [place], single, no previous contact with [facility] psychiatry, unemployed, supported by [facility], no previous psychiatric history, no previous psychiatric hospitalizations, no previous suicide attempts, who presents to the emergency department under [place] act initiated by law enforcement. According to law enforcement report the patient is "abusing prescribed medication. Advised he wanted to kill himself last night and took all of his medication. The report also alleges that he made suicidal statements to weeks ago. Mann made another statement this morning about killing himself." The patient was monitored in main ED and he presented no suicidality and no behavioral dysregulation. EMR reviewed. Current toxicology is positive for benzos and opiates which are prescribed Patient is alert, oriented 3, concrete Thinking, dressed in hospital gown with fair hygiene. Patient speech is logical, clear, goal-directed. He appears to be of lower intellectual functioning. There is no evidence of any psychosis, no jeremy, no hypomania. No subjective clinical evidence of depression. He is mildly anxious about being here in the hospital. He denies any suicidal or homicidal ideation, intent or plan. He states " I took pain pills due to increasing pain in to see if it would help me. No ma'am I do not want to hurt myself and I was not trying to hurt myself." He reports he has persistent pain secondary to back problems as well as to pain with his ostomy. Review of Systems Constitutional: DENIES: Diaphoretic episodes, Fatigue, Fever, Weight gain, Weight loss, Chills, Dizziness, Change in appetite, Night Sweats Endocrine: DENIES: Heat/cold intolerance, Polydipsia, Polyuria, Polyphagia Eyes: DENIES: Blurred vision, Diplopia, Eye inflammation, Eye pain, Vision loss , Photosensitivity, Double Vision Ears, nose, mouth, throat: DENIES: Tinnitus, Hearing loss, Vertigo, Nasal discharge, Oral lesions, Throat pain, Hoarseness, Ear Pain, Running Nose, Epistaxis, Sinus Pain, Toothache, Odynophagia Respiratory: DENIES: Apneas, Cough, Snoring, Wheezing, Hemoptysis, Sputum production, Shortness of breath Cardiovascular: DENIES: Chest pain, Palpitations, Syncope, Dyspnea on Exertion , PND, Lower Extremity Edema, Orthopnea, Claudication Gastrointestinal: DENIES: Abdominal pain, Black stools, Bloody stools, Constipation, Diarrhea, Nausea, Vomiting, Difficulty Swallowing, Anorexia Genitourinary: DENIES: Sexual dysfunction, Urinary frequency, Urinary incontinence, Urgency, Hematuria, Dysuria, Nocturia, Penile Discharge, Testicular Pain, Testicular Swelling Musculoskeletal: DENIES: Joint pain, Muscle aches, Stiffness, Joint Swelling, Back pain, Neck pain Integumentary: DENIES: Abnormal pigmentation, Nail changes, Pruritus, Rash Hematologic/lymphatic: DENIES: Bruising, Lymphadenopathy Immunologic/allergic: DENIES: Eczema, Urticaria Neurologic: DENIES: Abnormal gait, Headache, Localized weakness, Paresthesias, Seizures, Speech Problems, Tremor, Poor Balance Psychiatric: DENIES: Anxiety, Confusion, Mood changes, Depression, Hallucinations, Agitation, Suicidal Ideation, Homicidal Ideation, Delusions Past Family Social History Coded Allergies: aspirin (Verified Allergy, Severe, Bleeding, 07/15/17) Reported Medications Bupropion HCl ER 24 HR (Wellbutrin Xl 24 HR) 150 Mg Tab, 150 MG PO DAILY for Control Depression, TAB 0 Refills 07/31/17 Oxycodone-Acetaminophen (Oxycodone-Acetaminophen) 5-325 mg Tab, 1 TAB PO Q4H Y for PAIN, TAB 0 Refills 07/31/17 Mirtazapine (Remeron) 15 Mg Tab, 15 MG PO HS for Depression Control, #30 TAB 0 Refills 07/31/17 Olanzapine (Zyprexa) 10 Mg Tab, 10 MG PO HS, #30 TAB 0 Refills 07/31/17 Escitalopram (Lexapro) 10 Mg Tab, 10 MG PO DAILY, #30 TAB 0 Refills 07/31/17 Discontinued Reported Medications Albuterol 18 GM Inh (Ventolin Hfa 18 GM Inh) 90 Mcg/Act Aer, 1 PUFF INH Q4H Y for SHORTNESS OF BREATH, #1 INHALER 0 Refills 07/15/17 Pantoprazole (Protonix) 40 Mg Tab, 40 MG PO DAILY for Reflux, #30 TAB 0 Refills 07/15/17 Oxycodone-Acetaminophen (Percocet) 5-325 mg Tab, 1 TAB PO Q4H Y for PAIN, TAB 0 Refills 07/15/17 Bupropion HCl ER 24 HR (Wellbutrin Xl 24 HR) 150 Mg Tab, 150 MG PO DAILY for Control Depression, TAB 0 Refills 07/15/17 Current Medications Medications (Trade) Dose Ordered Sig/Denita Route Start Time Stop Time Status Last Admin Sodium Chloride 1,000 ml @ 100 mls/hr Q10H IV 07/31/17 04:36 07/31/17 10:55 (NS Flush) 2 ml UNSCH PRN IV FLUSH 07/31/17 04:45 (NS Flush) 2 ml BID IV FLUSH 07/31/17 09:00 (Tylenol) 650 mg Q4H PRN PO 07/31/17 04:45 (Zofran Inj) 4 mg Q6H PRN IVP 07/31/17 04:45 (Narcan Inj) 0.4 mg UNSCH PRN IV PUSH 07/31/17 04:45 (Wellbutrin Sr) 150 mg DAILY PO 07/31/17 09:00 07/31/17 10:55 (Lexapro) 10 mg DAILY PO 07/31/17 09:00 (Remeron) 15 mg HS PO 07/31/17 21:00 (ZyPREXA) 10 mg HS PO 07/31/17 21:00 Piperacillin Sod/ Tazobactam Sod 50 ml @ 100 mls/hr Q6H IV 07/31/17 10:00 07/31/17 10:55 (Morphine Inj) 2 mg Q3H PRN IV PUSH 07/31/17 12:00 (Morphine Inj) 4 mg Q3H PRN IV PUSH 07/31/17 12:00 Family Psych History No family psychiatric history Social History Patient was born and raised in [place], he lives with a friend there, unemployed, single, supported by SSI, her highest level of education is seventh grade Patient's Strengths (min. 2) Verbal communication Physical Exam No tremors, no EPS, Vital Signs Vital Signs Date Time Temp Pulse Resp B/P (MAP) Pulse Ox O2 Delivery O2 Flow Rate FiO2 07/31/17 11:14 85 15 115/67 (83) 97 Room Air 07/31/17 07:00 98.0 I/O 07/31/17 07/31/17 08/01/17 08:00 16:00 00:00 Intake Total 100 ml 50 ml Balance 100 ml 50 ml Lab Results Test 07/31/17 01:30 White Blood Count 13.3 TH/MM3 Red Blood Count 4.96 MIL/MM3 Hemoglobin 16.4 GM/DL Hematocrit 45.6 % Mean Corpuscular Volume 92.0 FL Mean Corpuscular Hemoglobin 33.2 PG Mean Corpuscular Hemoglobin Concent 36.1 % Red Cell Distribution Width 15.4 % Platelet Count 492 TH/MM3 Mean Platelet Volume 7.1 FL Neutrophils (%) (Auto) 77.3 % Lymphocytes (%) (Auto) 13.0 % Monocytes (%) (Auto) 9.0 % Eosinophils (%) (Auto) 0.3 % Basophils (%) (Auto) 0.4 % Neutrophils # (Auto) 10.3 TH/MM3 Lymphocytes # (Auto) 1.7 TH/MM3 Monocytes # (Auto) 1.2 TH/MM3 Eosinophils # (Auto) 0.0 TH/MM3 Basophils # (Auto) 0.1 TH/MM3 CBC Comment AUTO DIFF Differential Comment AUTO DIFF CONFIRMED Blood Urea Nitrogen 30 MG/DL Creatinine 1.44 MG/DL Random Glucose 100 MG/DL Total Protein 10.7 GM/DL Albumin 4.1 GM/DL Calcium Level 9.5 MG/DL Alkaline Phosphatase 91 U/L Aspartate Amino Transf (AST/SGOT) 115 U/L Alanine Aminotransferase (ALT/SGPT) 162 U/L Total Bilirubin 0.8 MG/DL Sodium Level 137 MEQ/L Potassium Level 5.1 MEQ/L Chloride Level 99 MEQ/L Carbon Dioxide Level 28.2 MEQ/L Anion Gap 10 MEQ/L Estimat Glomerular Filtration Rate 54 ML/MIN Lipase 153 U/L Thyroid Stimulating Hormone 3rd Gen 0.276 uIU/ML Ethyl Alcohol Level LESS THAN 3 MG/DL Mental Status Examination Appearance: Appropriate Consciousness: Alert Orientation: x4 Motor Activity: Normal gait Speech: Unremarkable Language: Adequate Fund of Knowledge: Adequate Attention and Concentration: Adequate Memory: Unremarkable Mood: Appropriate Affect: Appropriate Thought Process & Associations: Intact Thought Content: Appropriate Hallucination Type: None Delusion Type: None Suicidal Ideation: No Suicidal Plan: No Suicidal Intention: No Homicidal Ideation: No Homicidal Plan: No Homicidal Intention: No Insight: Adequate Judgment: Adequate Assessment & Plan Problem List: (1) Adjustment disorder with depressed mood ICD Codes: F43.21 - Adjustment disorder with depressed mood Assessment & Plan: At the moment of this evaluation the patient does not present any acute symptomatology of depression, jeremy, psychosis or anxiety. The patient denies suicidal and homicidal ideation, he denies visual and auditory hallucinations. Continue current psychotropic regimen. The patient does not meet criteria for involuntary psychiatric admission at this moment. Patient is psychiatrically cleared to continue medical treatment. Assessment & Plan Estimated LOS: Esteban Vazquez MD Jul 31, 2017 13:12
[2017-07-31 16:12] VITALS: BP 113/63; PULSE 75; RESP 18; TEMP 98.3; O2SAT 96
[2017-07-31 20:37] VITALS: BP 138/68; PULSE 65; RESP 18; TEMP 98.4; O2SAT 92
[2017-07-31] MEDS ORDERED: OLANZapine 10 MG TAB PO SCH (21:00)
[2017-07-31] MEDS ORDERED: MIRTAZAPINE 15 MG TAB PO SCH (21:00)
[2017-08-01 00:57] VITALS: BP 136/78; PULSE 64; RESP 18; TEMP 98.4; O2SAT 95
[2017-08-01 03:53] VITALS: BP 110/64; PULSE 64; RESP 18; TEMP 98.1; O2SAT 99
[2017-08-01] MEDS: PIPERACIL-TAZO 3.375 GM PREMIX 50 ML IV SCH ×2 (04:00→10:00)
[2017-08-01 07:44] VITALS: BP 103/65; PULSE 65; RESP 18; TEMP 97.7; O2SAT 95
[2017-08-01 08:14] LABS: AUTOMATED NEUTROPHIL # 7.4 TH/MM3 (1.8-7.7); BASOPHIL # 0.1 TH/MM3 (0-0.2); BASOPHIL % 0.7 % (0.0-2.0); EOSINOPHIL # 0.1 TH/MM3 (0-0.4); EOSINOPHIL % 1.1 % (0.0-4.0); HEMATOCRIT 43.1 % (39.0-51.0); HEMOGLOBIN 15.1 GM/DL (13.0-17.0); LYMPH % 14.2 % (9.0-44.0); LYMPHOCYTE # 1.4 TH/MM3 (1.0-4.8); MEAN CELL VOLUME 93.3 FL (80.0-100.0); MEAN CORPUSCULAR HEMOGLOBIN 32.7 PG (27.0-34.0); MEAN CORPUSCULAR HGB CONC 35.1 % (32.0-36.0); MEAN PLATELET VOLUME 7.3 FL (7.0-11.0); MONO % 9.9 % (0.0-8.0); NEUT % 74.1 % (16.0-70.0); PLATELET COUNT 393 TH/MM3 (150-450); RED BLOOD COUNT 4.62 MIL/MM3 (4.50-5.90); RED CELL DISTRIBUTION WIDTH 15.1 % (11.6-17.2)
--- NOTE | 2017-08-01 08:18 | HHI.PR ---
Subjective Remarks Follow-up rectal abscess. Denies rectal pain. Wants to leave AGAINST MEDICAL ADVICE discussed with nursing Objective Vitals Vital Signs Date Time Temp Pulse Resp B/P (MAP) Pulse Ox O2 Delivery O2 Flow Rate FiO2 08/01/17 07:44 97.7 65 18 103/65 (78) 95 08/01/17 03:53 98.1 64 18 110/64 (79) 99 08/01/17 00:57 98.4 64 18 136/78 (97) 95 08/01/17 00:14 17 07/31/17 20:37 98.4 65 18 138/68 (91) 92 07/31/17 16:12 98.3 75 18 113/63 (80) 96 07/31/17 14:41 07/31/17 11:14 85 15 115/67 (83) 97 Room Air I/O 07/31/17 07/31/17 07/31/17 08/01/17 08/01/17 08/01/17 07:00 15:00 23:00 07:00 15:00 23:00 Intake Total 100 ml 50 ml 50 ml Balance 100 ml 50 ml 50 ml Intake IV Total 100 ml 50 ml 50 ml # Voids 1 2 Result Diagram: 07/31/170 07/31/17129 Imaging Last Impressions Abdomen/Pelvis CT 07/31/17217 Signed Impressions: Service Date/Time: July 02:28 - CONCLUSION: 1. There is a 3.8 cm rim-enhancing low-density collection in the region of the rectum and anus. This could represent chronic postsurgical change or an infected fluid collection. Suggest correlating with the patient's prior CT examinations or correlate for any pelvic pain or signs of infection. 2. Otherwise, no other acute finding is identified. Bronson Colorado MD Objective Remarks GENERAL: Well-nourished, well-developed middle aged male patient in [facility]. SKIN: Warm and dry. No rash. HEENT: Normocephalic. Atraumatic. Pupils equal and round. Mucous membranes pink and moist. CARDIOVASCULAR: Regular rate and rhythm. S1, S2 noted. No murmur appreciated. RESPIRATORY: No accessory muscle use. Clear to auscultation. Breath sounds equal bilaterally. GASTROINTESTINAL: Abdomen soft, non-tender, nondistended. Normoactive bowel sounds x4. Ileostomy at LLQ. Old surgical scarring. MUSCULOSKELETAL: No obvious deformities. Extremities without clubbing, cyanosis , or edema. NEUROLOGICAL: Awake and alert. No obvious cranial nerve deficits. Motor grossly within normal limits. Normal speech. Procedures none A/P Problem List: (1) Rectal abscess ICD Code: K61.1 - Rectal abscess (2) Adjustment disorder with depressed mood ICD Code: F43.21 - Adjustment disorder with depressed mood Assessment and Plan 41-year-old male with past medical history significant for ulcerative colitis s /p colectomy, with ileostomy since 1999, unspecified psychiatric disorder, presents under exparte from [facility] for further medical evaluation. He is currently paranoid, psychotic and not taking his medication. The patient reports that he has had significant low back, buttock pain for the past several days. Sepsis with Rectal abscess: CT abdomen/pelvis reviewed, significant for a 3.8 cm rim enhancing low-density collection in the region of the rectum and anus that could represent postsurgical change versus infected fluid collection. Rectal exam was attempted in the emergency department however was severely limited secondary to patient's pain. Meets sepsis criteria with +leukocytosis with WBC 13.3, tachycardia HR 103, and source-rectal abscess. -Continue antibiotics with IV Zosyn -Clear liquids -Give IVF hydration -Pain control with IV Morphine and oxycodone counseled regarding narcotics -Consult colorectal surgery, appreciate recommendations Psychiatric disorder: patient from [facility] -Psychiatry consulted, appreciate recommendations. Carrizales act lifted -Continue home medications: Remeron, Zyprexa BRITTANIE: Cr 1.44, baseline 1.0. Suspect secondary to dehydration from increased ileostomy output. -Continue IVF hydration -Monitor renal function Transaminitis: Patient with history of elevated LFTs, no hx of hepatitis or cirrhosis. CT abd with normal liver. -Patient admits to taking tylenol a few times a day over the past 2 weeks -Unremarkable Tylenol level. Check hepatitis profile -Monitor LFTs DVT Prophylaxis: teds/SCDs; avoid chemoprophylaxis with possible upcoming procedure Discharge Planning Patient left AGAINST MEDICAL ADVICE Discharge patient to home Condition on discharge: Guarded Clear liquid Ad Ekaterina activity no driving Rx written: None Follow-up with primary care physician and colorectal surgery Elian Mello MD Aug 01, 2017 08:18
[2017-08-01] MEDS ORDERED: MORPHINE SULFATE 4 MG/ML INJ IV PUSH PRN (08:30)
[2017-08-01 08:46] LABS: ALBUMIN 3.8 GM/DL (3.4-5.0); ALKALINE PHOSPHATASE 79 U/L (45-117); ALT (GPT) 147 U/L (12-78); AST (GOT) 95 U/L (15-37); BICARBONATE 30.8 MEQ/L (21.0-32.0); BLOOD UREA NITROGEN 27 MG/DL (7-18); CALCIUM 8.9 MG/DL (8.5-10.1); CHLORIDE 102 MEQ/L (98-107); CREATININE 1.16 MG/DL (0.60-1.30); GLOMERULAR FILTRATION RATE 69 ML/MIN (>89); GLUCOSE,RANDOM 63 MG/DL (74-106); SODIUM (NA) 140 MEQ/L (136-145); TOTAL BILIRUBIN ADULT 0.8 MG/DL (0.2-1.0); TOTAL PROTEIN 9.5 GM/DL (6.4-8.2)
[2017-08-01] MEDS: ESCITALOPRAM OXALATE 10 MG TAB PO SCH (09:00)
[2017-08-01] MEDS: SODIUM CHLORIDE 0.9% FLUSH 10 ML FLUSH IV FLUSH SCH (09:00)
[2017-08-01] MEDS: buPROPion HCL 150 MG SUSTAINED RELEASE TAB PO SCH (09:00)
[2017-08-01] MEDS: SODIUM CHLOR 0.9% 1000 ML INJ 1,000 ML IV SCH (10:36)
[2017-08-01 11:07] VITALS: BP 135/83; PULSE 66; RESP 18; O2SAT 98
--- NOTE | 2017-08-01 18:10 | PD.AMA ---
Against Medical Advice Note AMA Statement Patient Mann Rothman has decided to leave the hospital against medical advice. This patient has the capacity to refuse care and understands the risks of leaving, including permanent disability and/or , and has had an opportunity to ask questions about his condition. The patient has been informed that he may return for care at any time, and follow up has been arranged/ advised. Elian Mello MD Aug 01, 2017 18:10
== END 2017-08-01 14:26 | disposition home or self-care (01) ==
LOC: NEDAMB 18:32 → NEDA 07-31 03:43 → NEPFCDU 07-31 14:47
PROVIDERS: ADMIT Internal Medicine; ATTEND Internal Medicine
DX: K61.1 Rectal abscess (principal); A41.9 Sepsis, unspecified organism; N17.9 Acute kidney failure, unspecified; F43.21 Adjustment disorder with depressed mood; F41.9 Anxiety disorder, unspecified; F29 Unspecified psychosis not due to a substance or known physiological condition; R74.0 Nonspecific elevation of levels of transaminase and lactic acid dehydrogenase [LDH]; F12.90 Cannabis use, unspecified, uncomplicated; J45.909 Unspecified asthma, uncomplicated; Z90.49 Acquired absence of other specified parts of digestive tract; Z93.3 Colostomy status
CPT/HCPCS: 74177; 80053; 80307; 83690; 84443; 85025; 96365; 96366; 96375; 96376; 99285; G0378; J2270; J2543; J7030; Q9967